=== PATIENT | male | born 1945 | race Caucasian/White ===

== ENCOUNTER 2017-02-24 22:25 | Emergency (ER) | payer MEDICARE ==
[~2017-02-24] VITALS: Ht 175.3 cm; Wt 80.3 kg
--- NOTE | 2017-02-25 01:00 | NUR ---
Pt is received alert, responsive as he came in c/o Left Thumb pain due to left thumb Abscess. His care as awaits MD orders.
[2017-02-25] MEDS ORDERED: LET TOPICAL SOLUTION 8 ML UDC TP ONE (01:15)
[2017-02-25] MEDS ORDERED: LET TOPICAL SOLUTION 8 ML UDC ONE (01:34)
--- NOTE | 2017-02-25 02:24 | NUR ---
Patient discharged to home in stable conditon. Written and verbal after care instructions given. Patient verbalizes understanding of instructions.
[2017-02-25] MEDS ORDERED: NEOMY/BACITRA/POLYMYXIN B OINT UD PACKET TP ONE ×2 (02:30→02:34)
== END 2017-02-25 02:26 | disposition home or self-care (01) ==
LOC: ER 22:25
DX: L02.512 Cutaneous abscess of left hand (principal); E78.00 Pure hypercholesterolemia, unspecified
CPT/HCPCS: 10060; 73140; 99284; A4663